=== PATIENT | male | born 1975 | race African-American/Black ===

== ENCOUNTER 2018-11-13 00:20 | Emergency (ER) | payer SELFPAY ==
--- NOTE | 2018-11-13 00:53 | ER Document Report ---
ED General - General Stated Complaint: UNRESPONSIVE Time Seen by Provider: 11/13/18 00:45 Cannot obtain history due to: Intoxicated, Altered mental status Notes: Patient is a 43-year-old male without known medical problems who presents unresponsive from the back of the vehicle. No further history can be obtained from the patient as he is obtunded and unresponsive requiring [id number] ventilation on initial assessment. Past Medical History - General Cannot obtain history due to: Intoxicated, Altered mental status - Social History Smoking Status: Unknown if Ever Smoked Drug Abuse: Heroin Family History: Other - Unable to obtain secondary to clinical status Review of Systems - Review of Systems -: Yes ROS unobtainable due to patient's medical condition Physical Exam - Vital signs Vitals: Resp Pulse Ox 19 100 11/13/18 00:23 11/13/18 00:23 Interpretation: Hypoxic Notes: PHYSICAL EXAMINATION: GENERAL: Obtunded, unresponsive HEAD: Atraumatic, normocephalic. EYES: Pupils pinpoint, sluggishly reactive bilaterally ENT: nares patent, moderately dry mucous membranes NECK: upple without lymphadenopathy LUNGS: Agonal respirations HEART: Regular tachycardia without murmurs ABDOMEN: Soft, No guarding, no rebound. No masses appreciated. EXTREMITIES: Normal range of motion, no pitting or edema. Cyanosis in the hands and feet NEUROLOGICAL: GCS 3 on initial assessment. PSYCH: Obtunded SKIN: Cool, cyanotic in the extremities Course - Re-evaluation Re-evalutation: 11/13/18 00:45 Documentation is delayed as I been at this patient's bedside continuously since his arrival. In summary this patient was brought in by private vehicle, completely unresponsive in the back of vehicle. He was extracted from the vehicle by staff and brought into the trauma bay for resuscitation. When he first came in the patient was completely unresponsive, agonal respirations. We began assisting ventilation with [id number]. The patient had a pulse oximeter placed and initial saturations were noted to be in the 20s. IV access was established while additional staff got Narcan. 2 mg of IV Narcan was administered. The patient had mild response but continued to provide minimal respiratory effort. Over the next 10 minutes aliquots of 0.5 mg of Narcan were administered approximately every 2 minutes into the patient became awake enough to state his name. A nasopharyngeal airway was inserted during the resuscitation to improve his oxygenation with success. The patient is now more responsive although still quite lethargic. Chest x-ray without evidence of aspiration. EKG unremarkable. This appears to be a significant opiate overdose requiring a total of 5.5 mg of naloxone administration to achieve minimal acceptable mental status. Will continue to reassess at regular intervals. 11/13/18 01:10 Patient still somewhat somnolent but wakes much more easily now and can hold a conversation without falling asleep. He is maintaining his saturations on 2 L of nasal cannula at 100%. Will continue to monitor until the patient becomes much more clinically sober particularly given the large quantity of naloxone that was required for reversal. 11/13/18 02:04 Patient is now much more alert, oriented, answers all questions appropriately. Admits to having drug abuse tonight. Requesting to leave. At this time will discharge with return precautions and follow-up recommendations. Verbal discha rge instructions given a the bedside and opportunity for questions given. Medication warnings reviewed. Patient is in agreement with this plan and has verbalized understanding of return precautions and the need for primary care follow-up in the next 24-72 hours. - Vital Signs Vital signs: Temp Pulse Resp BP Pulse Ox 98.5 F 101 H 13 132/97 H 100 11/13/18 00:31 11/13/18 00:31 11/13/18 02:21 11/13/18 01:06 11/13/18 02:21 - Diagnostic Test Radiology reviewed: Image reviewed, Reports reviewed Radiology results interpreted by me: 11/13/18 00:47 Chest x-ray: No acute infiltrate or pneumothorax - EKG Interpretation by Me Additional EKG results interpreted by me: 11/13/18 00:47 Sinus tachycardia, rate 101. No ST elevations or depressions. QTC is prolonged at 503. Critical Care Note - Critical Care Note Total time excluding time spent on procedures (mins): 38 Comments: Critical care time spent obtaining history from patient or surrogate, evaluation of patient's response to treatment, examination of patient, ordering and performing treatments and interventions, re-evaluation of patient's condition, ordering and review of radiographic studies. Discharge - Discharge Clinical Impression: Agonal respiration Opiate overdose Qualifiers: Encounter type: initial encounter Injury intent: accidental or unintentional Qualified Code(s): T40.601A - Poisoning by unspecified narcotics, accidental (unintentional), initial encounter Condition: Stable Disposition: HOME, SELF-CARE Additional Instructions: You were seen today for an opiate overdose. Please never use opiates of any kind. Over 200 people every day in the [place] from opiate overdoses. Do not become a statistic. You should urgently seek rehab or a similar resource. You can call 9-177-970-[place] to find local resources. Return if you have any symptoms that are concerning to you including difficulty breathing, fever, persistent vomiting, or any other symptoms that are concerning to you.
--- NOTE | 2018-11-13 00:57 | RADIOLOGY REPORT (SQ) ---
EXAM DESCRIPTION: XR CHEST 1 VIEW COMPLETED DATE/TME: 11/13/2018 00:00 CLINICAL HISTORY: 43 years, Male, UNRESPONSIVE Comparison: None FINDINGS: No focal lung consolidation. Right upper lobe parenchymal scarring. No pleural effusion. No pneumothorax. Cardiac and mediastinal silhouette is unremarkable. No acute osseous abnormality. Soft tissues are unremarkable. IMPRESSION: No acute findings. No focal lung consolidation.
[2018-11-13] MEDS ORDERED: NALOXONE HCL INJ/PF 0.4 MG/1 ML SDV IV ONE (02:06)
[2018-11-13] MEDS ORDERED: ONDANSETRON HCL INJ/PF 4 MG/2 ML SDV IV ONE (02:07)
[2018-11-13] MEDS ORDERED: NORMAL SALINE 1000 ML 1,000 ML IV ONE (02:07)
[2018-11-13 02:24] VITALS: BP 132/97
--- NOTE | 2018-11-13 06:35 | EKG REPORT ---
SEVERITY:- ABNORMAL ECG - SINUS TACHYCARDIA PROLONGED QT INTERVAL : Confirmed by: Wei Pride MD 13-Nov-2018 06:34:27
== END 2018-11-13 03:08 | disposition home or self-care (01) ==
LOC: EDBD 00:20 → ER 00:20
DX: T40.601A Poisoning by unspecified narcotics, accidental (unintentional), initial encounter (principal); R06.89 Other abnormalities of breathing; F10.920 Alcohol use, unspecified with intoxication, uncomplicated; R41.82 Altered mental status, unspecified; F19.10 Other psychoactive substance abuse, uncomplicated
CPT/HCPCS: 93005; 99291; 96361; 96374; 96375; 71045; 93010; J2310; J2405; J7030